=== PATIENT | female | born 1980 | race Hispanic/Latino ===

== ENCOUNTER 2025-04-18 11:07 | Outpatient (CLI) | payer MEDICAID, SELFPAY | END 2025-04-18 11:08 | disposition home or self-care (01) | LOC: ANHLAB 11:08 | PROVIDERS: Visit Provider Student in an Organized Health Care Education/Training Program | DX: Z34.90 Encounter for supervision of normal pregnancy, unspecified, unspecified trimester (principal); Z3A.00 Weeks of gestation of pregnancy not specified | CPT/HCPCS: 36415; 84702; 86644; 86747; 86850 ==